=== PATIENT | female | born 1955 | race Caucasian/White ===

== ENCOUNTER 2017-02-27 10:45 | Day surgery (SDC) | payer BC ==
[2017-02-27] VITALS (20 sets, daily range): BP systolic 119–159; BP diastolic 68–99; PULSE 50–69; RESP 13–34; TEMP 95.8–98.3; O2SAT 95–100; Ht 177.8 cm; Wt 75.8 kg
[~2017-02-27] VITALS: Ht 177.8 cm; Wt 75.8 kg
[~2017-02-27 10:45] MED LIST: ACET-2321 PO; ALBU2.5V7 AEROSOL; ARGI500C9 PO; ASCO10007 PO; ASPI-917 PO; ATOR20TA59 PO; BLAC40CA PO; CEPH-583 PO; CLINDAMYCIN 600mg IVPB 50 ML IV ONE; HYDR12.530 PO; LIDOCAINE 1% (10mg/ml) 2ml SDV INJ ONE; NIAC500T22 PO; POLY17PO18 PO; POTA99TA PO; TRAM50TA53 PO; UBID100C10 PO; VITA150T PO; VITA400C19 PO; [UNRECOGNIZED DRUG - OTHER] PO
--- OUTSIDE RECORDS SUMMARY | 2017-02-27 10:50 | XMS REPORT | Continuity of Care Document ---
Author Author [facility] Organization [facility] Address Unknown Phone Unavailable Support Name Relationship Address Phone OSIEL PATTERSON MD Caregiver [address] [place] [address] Unavailable OSIEL PATTERSON MD Caregiver [address] [place] [address] Unavailable DL YEPEZ DO Caregiver Unknown Unavailable MACIE ZAZUETA Next Of Kin [address] [phone] Insurance Providers Guarantor Shala Dash Address [address] [place] [address] Email [email or web address] Other Policy Number [id number] Subscriber's Name Shala Dash Relationship 18 Self Group Number [id number] Advance Directives Directive Response Recorded Date/Time Ordered Resuscitation Status Full Code 01/10/17 3:33pm Resuscitation Documents on File No 01/11/17 7:37am DPOA for Healthcare Only No 01/11/17 7:37am Living Will No 01/11/17 7:37am Problems Active Problems Medical Problem Onset Date Status Degenerative arthritis of left knee Unknown Chronic Depression Unknown Hyperlipemia Unknown Hypertension Unknown Spherocytosis Unknown Past Problems Medical Problem Onset Date FRACTURE OF TOE Unknown Medications Current Home Medications Medication Dose Units Route Directions Days Qty Instructions Start Date Acetaminophen (Tylenol) 325 Mg Tablet 650 Mg Oral Four Times Daily 100 Tablet 01/12/17 Albuterol Sulfate 2.5 Mg/3 Ml Vial.neb 2.5 Mg Aerosol Tx. Daily as needed for Shortness Of Air/Wheezing 01/08/17 Arginine (L-Arginine) 500 Mg Capsule 2 Cap Oral Daily 01/05/17 Ascorbic Acid (Vitamin C) 1,000 Mg Tablet 1 Tab Oral Daily Aspirin (Aspirin Ec) 325 Mg Tablet. 325 Mg Oral Twice A Day 84 Tablet 01/12/17 Atorvastatin Calcium 20 Mg Tablet 1 Tab Oral Bedtime 01/05/17 Black Cohosh 40 Mg Capsule 2 Cap Oral Daily 01/05/17 Calmagzinc 1 Tab Oral Daily 01/05/17 Cephalexin (Keflex) 500 Mg Capsule 1 Cap Oral Twice A Day Hydrochlorothiazide 12.5 Mg Capsule 1 Cap Oral Bedtime 01/05/17 Niacinamide (Niacin) 500 Mg Tablet 1 Tab Oral Daily 01/08/17 Polyethylene Glycol 3350 (Healthylax) 17 Gm Powd.pack 17 G Oral Daily 30 Packet 01/12/17 Potassium Gluconate 99 Mg Tablet 1 Tab Oral Give With Breakfast 01/08/17 Tramadol Hcl (Ultram) 50 Mg Tablet 50-100 Mg Oral Every 4 Hours as needed for Pain 60 Tablet 01/12/17 Ubidecarenone (Coq-10) 100 Mg Capsule 400 Mg Oral Daily 01/08/17 Vitamin B Complex & Vit C No.4 (Super B Complex) 150 Mg Tablet 1 Tab Oral Daily 01/05/17 Vitamin E (Dl,Tocopheryl Acet) (Vitamin E) 400 Unit Capsule 400 Unit Oral Daily 01/05/17 Past Home Medications Medication Directions Ordered Status Aspirin (Aspirin Ec) 81 Mg Tablet.dr, 1 Tab Oral Daily 01/05/17 Discontinued Social History Social History Problem Response Recorded Date/Time Onset Date Status Reason for Hospitalization LEFT KNEE DEGENERATIVE JOINT DISEASE 01/12/2017 1: 05pm Not Applicable Not Applicable Chewing Tobacco Status No 01/11/2017 7:11am Not Applicable Not Applicable Hx Substance Use No 01/11/2017 7:11am Not Applicable Not Applicable Hx Alcohol Use No 01/11/2017 7:11am Not Applicable Not Applicable Has the pt used tobacco in the last 12 months Yes 01/11/2017 7:11am Not Applicable Not Applicable Query Response Start Date Stop Date Smoking Status Former smoker Hospital Discharge Instructions Instructions: Care Instructions: Reason for Hospitalization: LEFT KNEE DEGENERATIVE JOINT DISEASE I was in the hospital because (patient own words): LEFT TOTAL KNEE Follow Up Appointments: [facility] ON 01/15/2017 AT 2:00PM FOR PHYSICAL THERAPY ANA ROSA. PHONE [phone] Pain Management/Treatment: POLAR PACK AND MEDS PRESCRIBED Condition at time of discharge: Good Plan of Care Discharge Date 01/12/17 1:30pm Disposition 01 DISCHARGED HOME, SELF-CARE Instructions/Education Provided [facility] Postop Instructions [facility] General Instructions Prescriptions See Medication Section Additional Instructions/Education FOLLOW UP WITH DR PATTERSON 4-3-17 @ 11:30AM [facility] ON 01/15/2017 AT 2:00PM FOR PHYSICAL THERAPY EVAL. PHONE [phone] Care Plan and Goals See Discharge Instructions Section Functional Status Query Response Date Recorded Mobility Status Ambulatory January 12, 2017 1:05pm Assistive Devices None January 12, 2017 1:05pm Activity Limitations None January 12, 2017 1:05pm Feeding Ability Independent January 12, 2017 1:05pm Toileting Ability Independent January 12, 2017 1:05pm Grooming Ability Independent January 12, 2017 1:05pm Dressing Ability Independent January 12, 2017 1:05pm Driving Ability Independent January 12, 2017 1:05pm Housework Ability Independent January 12, 2017 1:05pm Meal Preparation Ability Independent January 12, 2017 1:05pm Stair Climbing Ability Independent January 12, 2017 1:05pm Ability to complete ADL's impeded by No change January 12, 2017 1:05pm Cognitive/Perceptual Impairments Impaired vision January 12, 2017 1:05pm Visual Assistive Devices Glasses With patient January 11, 2017 11:02am Preferred Method of Learning Reading Listening January 11, 2017 11:02am Allergies, Adverse Reactions, Alerts Allergen Type Severity Reaction Status Last Updated Penicillin Allergy Unknown RASH, ITCHING Active 01/08/17 Levofloxacin Allergy Unknown RASH, ITCHING Active 01/08/17 Pneumococcal conjugate vaccine Allergy Unknown SWELLING OF ARM Active 04/21 Immunizations Query Response on File Recorded Date/Time Hx Influenza Vaccination N DECLINES 01/11/17 7:11am Hx Pneumococcal Vaccination N X1-DECLINES 01/11/17 7:11am Hx Influenza Vaccination N DECLINES 01/11/17 7:11am Influenza Vaccine Hx UNKNOWN 01/11/17 12:03pm Vital Signs Acute Vital Signs Vital Response Date/Time Temperature (Fahrenheit) 96.0 deg F (96.8 - 99.1) 01/12/2017 12:06pm Temperature (Calculated Celsius) 35.20138 degrees C (36.0 - 37.3) 01/12/2017 12:06pm Temperature Source Oral 01/12/2017 12:06pm Pulse Rate (adult) 55 bpm (60 - 100) 01/12/2017 12:06pm Respiratory Rate 16 breaths/min (10 - 20) 01/12/2017 12:06pm O2 Sat by Pulse Oximetry 98 % (90 - 100) 01/12/2017 12:06pm Oxygen Delivery Method Room Air 01/12/2017 12:06pm Oxygen Delivery Method Room Air 01/11/2017 4:17pm Oxygen Flow Rate 1.00 L/min 01/12/2017 4:41am Blood Pressure 150/78 mm Hg 01/12/2017 12:06pm Blood Pressure Source Automatic Cuff 01/12/2017 12:06pm Height (Feet) 5 feet 01/12/2017 7:49am Height (Inches) 10.00 inches 01/12/2017 7:49am Weight (Kilograms) 82.900 kg 01/12/2017 8:00am Body Mass Index (BMI) 24.4 01/11/2017 6:53am Results Laboratory Results Test Name Result Units Flags Reference Collection Date/Time Result Date/ Time Comments White Blood Count 17.6 T/MM3 H 4.5-11.0 01/12/2017 5:31am 01/12/2017 5: 47am Red Blood Count 3.31 M/MM3 L 4.00-5.20 01/12/2017 5:31am 01/12/2017 5: 47am Hemoglobin 10.8 GM/DL L 12-16 01/12/2017 5:31am 01/12/2017 5:47am Hematocrit 32.3 % L 36-46 01/12/2017 5:31am 01/12/2017 5:47am Mean Corpuscular Volume 97.6 UM3 80-100 01/12/2017 5:31am 01/12/2017 5: 47am Mean Corpuscular Hemoglobin 32.6 UUG 26-34 01/12/2017 5:31am 2016 5:47am Mean Corpuscular Hemoglobin Concent 33.4 GM/DL 31-37 01/12/2017 5:31am 01/12/2017 5:47am RDW Standard Deviation 44.1 FL 36.9-50.2 01/12/2017 5:31am 01/12/2017 5 :47am Platelet Count 470 T/MM3 H 130-400 01/12/2017 5:31am 01/12/2017 5:47am Mean Platelet Volume 10.2 UM3 9.4-12.4 01/12/2017 5:31am 01/12/2017 5: 47am Icterus Index < 2 0-7 01/12/2017 5:31am 01/12/2017 5:52am Chemistry Specimen Hemolysis < 15 0-25 01/12/2017 5:3101/12/2017 5 :52am 0-25: Specimen Exhibited No Hemolysis. Turbidity < 20 0-20 01/12/2017 5:31am 01/12/2017 5:52am Sodium Level 141 MEQ/L 134-144 01/12/2017 5:3101/12/2017 5:52am Potassium Level 4.4 MEQ/L 3.6-5 01/12/2017 5:31am 01/12/2017 5:52am Chloride Level 106 MEQ/L 98-107 01/12/2017 5:31am 01/12/2017 5:52am Carbon Dioxide Level 26 MEQ/L 22-30 01/12/2017 5:31am 01/12/2017 5: 52am Anion Gap 9 MEQ/L 5-15 01/12/2017 5:31am 01/12/2017 5:52am Blood Urea Nitrogen 26.0 MG/DL H 7-17 01/12/2017 5:31am 01/12/2017 5: 52am Creatinine 1.3 MG/DL D H 0.7-1.2 01/12/2017 5:31am 01/12/2017 5:58am BUN/Creatinine Ratio 20 RATIO 6-26 01/12/2017 5:31am 01/12/2017 5:52am Glomerular Filtration Rate Calc 42 01/12/2017 5:31am 01/12/2017 5: 52am Glucose Level 108 MG/DL 65-110 01/12/2017 5:31am 01/12/2017 5:52am Calculated Osmolality 277 MOSM/KG 261-280 01/12/2017 5:31am 01/12/2017 5:52am Calcium Level 9.2 MG/DL 8.4-10.2 01/12/2017 5:3101/12/2017 5:52am Name: SHALA DASH Unit #: [id number] : [id number] Sex: F Admit Date: 01/11/17 Loc / Svc: SRG Discharge Date: DIAGNOSTIC IMAGING REPORT Report #: [id number] [facility] [place], [place] Indication: ITS.REASON: POSTOP left knee replacement PROCEDURE: KNEE LEFT 2 VIEW: Encounter: Initial Comparison: None Findings: Postoperative changes of left total knee replacement are seen. There is expected postoperative subcutaneous gas. No evidence of hardware failure or acute fracture. No retained radiopaque surgical instruments or sponges. Overlying material causing artifact. Impression: New left total knee prosthesis without evidence of immediate complication. . Procedures Procedure Status Date Provider(s) Total replacement of left knee joint Completed 01/11/17 OSIEL PATTERSON MD Encounters Encounter Location Arrival/Admit Date Discharge/Depart Date Attending Provider Discharged Inpatient [facility] 01/11/17 6:32am 01/12/17 1:30pm OSIEL PATTERSON MD
[2017-02-27 11:15] LABS: BASOPHILS # (AUTO) 0.3 T/MM3 (0-0.2); BASOPHILS % (AUTO) 2.8 % (0-2); EOSINOPHILS # (AUTO) 0.5 T/MM3 (0-0.5); HCT - HEMATOCRIT 35.8 % (36-46); HGB - HEMOGLOBIN 11.9 GM/DL (12-16); IMMATURE GRANULOCYTE # (AUTO) 0.01 T/MM3 (0.00-0.03); IMMATURE GRANULOCYTE % (AUTO) 0.1 % (0.0-0.5); LYMPHOCYTES # (AUTO) 2.8 T/MM3 (1-4.8); LYMPHOCYTES % (AUTO) 30.7 % (23-45); MEAN CORPUSCULAR HGB 32.2 UUG (26-34); MEAN CORPUSCULAR HGB CONC(MCHC 33.2 GM/DL (31-37); MEAN CORPUSCULAR VOLUME 96.8 UM3 (80-100); MEAN PLATELET VOLUME 9.8 UM3 (9.4-12.4); MONOCYTES # (AUTO) 0.6 T/MM3 (0-0.8); MONOCYTES % (AUTO) 6.1 % (0-9.0); NEUTROPHILS #(AUTO)-ABSOLUTE 5.1 T/MM3 (1.8-7.7); NEUTROPHILS % (AUTO) 55.3 % (33-66); WBC - WHITE BLOOD COUNT 9.2 T/MM3 (4.5-11.0)
[2017-02-27] MEDS: LR 1,000 ML IV SCH ×2 (11:15→14:26)
[2017-02-27 11:24] LABS: ANION GAP 12 MEQ/L (5-15); BUN/CREATININE RATIO 16 RATIO (6-26); CHLORIDE 106 MEQ/L (98-107); CO2 - CARBON DIOXIDE 29 MEQ/L (22-30); CREATININE 1.1 MG/DL (0.7-1.2); GLOMERULAR FILTRATION RATE 50; GLUCOSE 95 MG/DL (65-110); POTASSIUM 4.4 MEQ/L (3.6-5); SODIUM 147 MEQ/L (134-144)
[2017-02-27] MEDS ORDERED: VANCOMYCIN 1,000 MG in NORMAL SALINE 250 ML IV SCH (12:15)
--- NOTE | 2017-02-27 12:24 | ANESPREOP ---
Anesthesia Record Date and Time DATE: 02/27/17 TIME: 12:21 Pre-Op Diagnosis wound dehiscence left knee Proposed Surgical Procedure WOUND DEHISCENCE NPO since: mn Allergies: Coded Allergies: Penicillins (Verified Allergy, Unknown, RASH, ITCHING, 02/27/17) levofloxacin (Verified Allergy, Unknown, RASH, ITCHING, 02/27/17) pneumococcal vaccine (Verified Allergy, Unknown, SWELLING OF ARM, 02/27/17) Ht/Wt/BMI Height: 5 ' 10.00 " Weight: 75.800 kg BMI: 24.0 kg/m2 Vital Signs Date Time Temp Pulse Resp B/P Pulse Ox O2 Delivery O2 Flow Rate FiO2 02/27/17 10:56 98.3 60 13 133/80 98 Room Air Medications Inpatient Medications Current Medications Medications (Trade) Dose Ordered Sig/Betzy Start Time Stop Time Status Last Admin Dose Admin Lactated Ringer's 1,000 ml @ 50 mls/hr Q20H 02/27/17 07:00 02/27/17 11:15 50 MLS/HR Vancomycin HCl/ Sodium Chloride (Vancocin/NS) 250 ml @ 250 mls/hr Q12H 02/27/17 12:15 Acetaminophen (Tylenol) 325 Mg Tablet, 650 MG PO QID Last Taken: on 02/24/17 Albuterol Sulfate (Albuterol Sulfate) 2.5 Mg/3 Ml Vial.neb, 2.5 MG AEROSOL DAILY PRN for SHORTNESS OF AIR/WHEEZING, (Reported) Last Taken: on 02/25/17 Arginine (l-Arginine) 500 Mg Capsule, 2 CAP PO DAILY, (Reported) Last Taken: on 02/26/17 1000 Ascorbic Acid (Vitamin C) 1,000 Mg Tablet, 1 TAB PO DAILY, (Reported) Last Taken: on 02/26/17 1000 Aspirin *EC* (Aspirin EC) 325 Mg Tablet.dr, 325 MG PO BID Last Taken: on 02/26/17 1000 Atorvastatin Calcium (Atorvastatin Calcium) 20 Mg Tablet, 1 TAB PO HS, (Reported) Last Taken: on 02/26/17 1000 Black Cohosh (Black Cohosh) 40 Mg Capsule, 2 CAP PO DAILY, (Reported) Last Taken: on 02/26/17 1000 Cephalexin (Keflex) 500 Mg Capsule, 1 CAP PO BID, (Reported) Last Taken: on 02/26/17 1200 Hydrochlorothiazide (Hydrochlorothiazide) 12.5 Mg Capsule, 1 CAP PO HS, (Reported) Last Taken: on 02/26/17 1000 Niacinamide (Niacin) 500 Mg Tablet, 1 TAB PO DAILY, (Reported) Last Taken: on 02/26/17 1000 Polyethylene Glycol 3350 (Healthylax) 17 Gm Powd.pack, 17 G PO DAILY Last Taken: on Unknown Date & Time Potassium Gluconate (Potassium Gluconate ) 99 Mg Tablet, 1 TAB PO WB, (Reported) Last Taken: on 02/26/17 1000 Tramadol HCl (Ultram) 50 Mg Tablet, 50-100 MG PO Q4H PRN for PAIN Last Taken: on Unknown Date & Time Ubidecarenone (Coq-10) 100 Mg Capsule, 400 MG PO DAILY, (Reported) Last Taken: on 02/26/17 1000 Vitamin B Complex & Vit C No.4 (Super B Complex ) 150 Mg Tablet, 1 TAB PO DAILY, (Reported) Last Taken: on 02/26/17 1000 Vitamin E (Dl,Tocopheryl Acet) (Vitamin E) 400 Unit Capsule, 400 UNIT PO DAILY, (Reported) Last Taken: on 02/26/17 1000 [CalMagZinc] , 1 TAB PO DAILY, (Reported) Last Taken: on 02/26/17 1000 Currently on Beta Jeremy: No Medical/Surgical History Anesthesia PMH: Reports: *Hypertension, COPD (NEBULIZER PRN), Pneumonia (HX OF SEVERAL YEARS AGO), Denies: *Diabetes, Anesthesia Reactions (NO AIRWAY ISSUES), Cancer, Clotting Problems, Glaucoma, Malignant Hyperthermia, Thyroid Disease Smoking Status: Former smoker # of Packs per Day: 1 Use Chewing Tobacco?: No Second Hand Exposure: No Substance Use Type: does not use Alcohol Intake: none HX of Last Menstrual Period: HYST Past Surgical History Orthopedic Surgeries: Yes - KNEE SCOPE Abdominal Surgeries: Yes - SPLENECTOMY (AGE 8); ELEN Genitourinary Surgeries: Cardiac Surgeries: Endocrine Surgeries: Reproductive Surgeries: Yes - HYST; CSECTION Neurological Surgeries: Ear Surgeries: Nose Surgeries: Throat Surgeries: Other Surgeries: Yes - KNEE SCOPE Anesthesia Adverse Reactions: FOUND none Family Hx of Anesthesia Advers: none Hx of Motion Sickness: No Pertinent Findings Laboratory Tests 02/27/17 11:08 02/27/17 11:09 EKG Rhythm: Sinus Rhythm Physical Exam Respiratory: Bilat breath sounds equal, Lungs clear Cardiovascular: FOUND Regular rate, rhythm, FOUND No murmur Airway Assessment Mallampati Score: I TMD: 3 Fingerbreadths Neck Extension: Good Overall Assessment: No Airway Concerns ASA: 2 Plan Anesthesia Plan: TIVA, GETA Peripheral Nerve Block: Saphenous - LT (post op if needed ) Discussion Discussed risks/options/alternatives of anesthesia and questions answered. Patient consents. Nursing pain assessment noted. Attestation Statement Prior to the delivery of any anesthetic medication, I examined the patient, developed the plan, obtained the patient's consent and discussed the risk and benefits of the procedure with the patient/guardian. LIBAN VEGA CRNA Feb 27, 2017 12:24
[2017-02-27] MEDS ORDERED: FENTANYL 100mcg/2ml INJECTION ONE (12:31)
[2017-02-27] MEDS ORDERED: PROPOFOL 200mg 20 ML IV ONE (12:31)
[2017-02-27] MEDS ORDERED: MIDAZOLAM 2mg/2ml INJECTION ONE (12:31)
[2017-02-27] MEDS ORDERED: LIDOCAINE 2% (20mg/ml) 5ml PF SDV ONE (12:31)
[2017-02-27] MEDS ORDERED: KETAMINE 500mg/10ml INJECTION ONE (12:32)
[2017-02-27] MEDS ORDERED: LIDOCAINE 1% (10mg/ml) 30ml SDV ONE (12:45)
[2017-02-27] MEDS ORDERED: BUPIVACAINE 0.25% (2.5mg/ml) INJ 30ml SDV ONE (12:45)
--- NOTE | 2017-02-27 14:11 | ANESPO ---
Post-Op Note Date 02/27/17 Time: 14:11 Status Pt Participated in Evaluation: Pt participated in person Vital Signs Date Time Temp Pulse Resp B/P Pulse Ox O2 Delivery O2 Flow Rate FiO2 02/27/17 10:56 98.3 60 13 133/80 98 Room Air Respiratory Function: Airway patent Cardiovascular Function: Regular pulse Mental Status: Alert/oriented Pain Level Intensity: 1 Hydration: IV infusing Complications during Recovery None apparent Follow-Up Instructions Instructions Per Surgeon MAKAYLA MCNEIL Feb 27, 2017 14:11
[2017-02-27] MEDS ORDERED: CEPH-583 PO (14:12)
[2017-02-27] MEDS ORDERED: TRAM50TA53 PO (14:12)
[2017-02-27] MEDS ORDERED: HYDROMORPHONE 2mg/ml INJECTION IV PRN (14:15)
[2017-02-27] MEDS ORDERED: ONDANSETRON 4mg/2ml INJECTION IV PRN ×2 (14:15→15:30)
--- NOTE | 2017-02-27 14:15 | PDOPERATE ---
Operative Report Date of Operation 02/27/17 Side: Left Preoperative Diagnosis: other (left knee surgical wound) Postoperative Diagnosis Same as preoperative diagnosis. Operation/Procedure: other (exploration of left knee surgical wound with debridement and closure) Surgeon Juan Carlos Flores MD [employer]er VALERIE Hernandez Complications None. Anesthesia Plan: TIVA Estimated Blood Loss See Anesthesia Record. Fluids Please See Anesthesia Record. Description of Operation Ms. Dash and her left knee were identified and marked in the the preoperative holding area. She was then brought back to the operating suite and proper anesthesia was administered. She was then positioned supine on the operating table. The left lower extremity was then prepped and draped in my normal sterile fashion. Timeout was performed with all operating room personnel. Her wound encompassed the distal 4 cm of the anterior midline knee incision. There is no surrounding erythema within the wound there was necrotic subcutaneous tissue and slough. No drainage. I begun by sharply removing all necrotic tissue from the wound. At the base of the wound her patellar tendon and joint capsule were intact without any signs of tunneling into the joint. I probed circumferentially around the wound to ensure there were no tunnels again were deeper or that travel into the joint which there were none. I then thoroughly irrigated the wound with normal saline I freshened up the skin edges sharply and I closed the wound with 3-0 nylon in a simple interrupted fashion. A sterile dressing was placed and she drapes removed and she was allowed to awake from general anesthesia and taken to the recovery room under the care of anesthesia. There were no complications. OSIEL FLORES MD Feb 27, 2017 14:14
--- NOTE | 2017-02-27 14:45 | NUR ---
ARRIVAL PT TO ROOM 129 PER CART. PT STATES PAIN IS 1/10, DENIES NEED FOR PAIN MEDICATION. PT DENIES NAUSEA OR SOA. PT ON RA, TOLERATING WELL. VS STABLE. DRESSING TO KNEE C/D/I. PT RESTING IN BED WITH ALARM. CALL LIGHT WITHIN REACH. WILL CONTINUE TO MONITOR.
[2017-02-27] MEDS ORDERED: MORPHINE SULFATE 10 MG SYRINGE IV PRN (15:30)
--- NOTE | 2017-02-27 18:52 | NUR ---
DISCHARGE PT DISCHARGED TO HOME IN GOOD CONDITION. PRN NORCO GIVEN FOR PAIN. PT DENIES NAUSEA OR SOA. TOLERATING REGULAR DIET WELL. VS STABLE. PT VOIDING WELL. PRESCRIPTIONS FOR TRAMDOL AND KEFLEX GIVEN TO PT. PACKET GIVEN TO PT. PT EXITED BY WHEELCHAIR THROUGH ER ENTRANCE ACCOMPANIED BY NURSING STAFF AND SISTER.
== END 2017-02-27 18:47 | disposition home or self-care (01) ==
LOC: SCU 10:45 → SRG 10:45 → SCU 18:47
PROVIDERS: ATTEND Orthopaedic Surgery
DX: T81.31XA Disruption of external operation (surgical) wound, not elsewhere classified, initial encounter (principal); Y83.4 Other reconstructive surgery as the cause of abnormal reaction of the patient, or of later complication, without mention of misadventure at the time of the procedure; Y92.009 Unspecified place in unspecified non-institutional (private) residence as the place of occurrence of the external cause
CPT/HCPCS: 13160; 36415; 80048; 85025; A6222; J2250; J2704; J3010; J3370; J7050; J7120; S0020